=== PATIENT | female | born 1950 | race Two or more races ===

== ENCOUNTER 2023-04-13 16:51 | Emergency (ER) | payer MEDICAID, OTHER ==
[~2023-04-13] VITALS: Ht 170.2 cm; Wt 87.2 kg
[2023-04-13 17:33] LABS: Basophils # (auto) 0.1 10 ^3/uL (0-0.2); Basophils % (auto) 0.7 % (0.0-2.0); Eosinophils # (auto) 0.1 10 ^3/uL (0-0.8); Hematocrit 43.9 % (36.0-46.0); Hemoglobin 14.8 g/dL (12.2-16.2); Lymphocytes # (auto) 3.6 10 ^3/uL (0.4-5.4); Lymphocytes % (auto) 39.5 % (10.0-50.0); Mean Corpuscular Hemoglobin 30.5 pg (28.0-32.0); Mean Corpuscular Hgb Conc. 33.8 g/dL (32.0-36.0); Mean Corpuscular Volume 90.2 fL (80.0-100.0); Monocytes # (auto) 0.7 10 ^3/uL (0-1.3); Monocytes % (auto) 7.2 % (0.0-12.0); Neutrophils # (auto) 4.7 10 ^3/uL (1.6-8.6); Neutrophils % (auto) 51.6 % (37.0-80.0); Nucleated Red Blood Cells % 0.1 %; Red Blood Cells 4.86 10^6/uL (4.0-5.20); Red Cell Distribution Width 14.7 % (11.8-14.3); White Blood Cell 9.1 10^3/uL (4.4-10.8)
[2023-04-13 17:46] LABS: Albumin 3.9 g/dL (3.4-5.0); Calcium 9.4 mg/dL (8.5-10.1); Magnesium 2.3 mg/dL (1.6-2.6)
[2023-04-13 17:50] LABS: BUN/Creatinine Ratio 15.3 (10.0-20.0); Bilirubin, Total 0.5 mg/dL (0.2-1.0); Total Protein 8.1 g/dL (6.4-8.2)
[2023-04-13 17:53] LABS: INR 1.07 (0.9-1.15); Partial Thromboplastin Time 29.1 SEC (24.5-34.5)
[2023-04-13] MEDS ORDERED: CIPROFLOXACIN HCL 500 MG TAB PO ONE (22:00)
[2023-04-13] MEDS ORDERED: metroNIDAZOLE 500 MG TAB PO ONE (22:00)
[2023-04-13] MEDS ORDERED: ZOFR4T PO (22:14)
[2023-04-13] MEDS ORDERED: METR-344 PO (22:14)
[2023-04-13] MEDS ORDERED: CIPR500T4 PO (22:14)
[2023-04-13 22:39] VITALS: BP 119/82; PULSE 71; RESP 16; TEMP 97.8; O2SAT 97
== END 2023-04-13 22:41 | disposition home or self-care (01) ==
LOC: ER 16:51
DX: K44.9 Diaphragmatic hernia without obstruction or gangrene (principal); K52.9 Noninfective gastroenteritis and colitis, unspecified; I48.91 Unspecified atrial fibrillation; K21.9 Gastro-esophageal reflux disease without esophagitis; Z98.890 Other specified postprocedural states; Z88.5 Allergy status to narcotic agent; Z79.899 Other long term (current) drug therapy
CPT/HCPCS: 36415; 74176; 80053; 82150; 83690; 83735; 84484; 85025; 85610; 85730; 93005